=== PATIENT | male | born 1960 | race Caucasian/White ===

== ENCOUNTER → 2019-06-20 15:28 | Outpatient (CLI) | payer OTHER, SELFPAY ==
--- NOTE | 2019-06-20 12:15 | COLBX_PTH ---
PATIENT: PATRICK TORRES LOC: [facility] U#:[id number] AGE/SX: 64/M ROOM: RE06/20/[address]: Dr. Rey Yi MD : [id number] BED: DIS: SPEC #: [id number] RECD: 06/20/19 15:20 STATUS: ROM RECristina #: [id number] JANNETH: 06/20/19 12:[address]: Rey Yi DEPT: SURGICAL PATHOLOGY RECD BY: Raman Zuniga ENTERED: 06/21/19 14:13 SP TYPE: COLON BX OT DR: Dr. Liane Lennon, [facility] Tissues: Sigmoid colon biopsy Procedures: Surgery Specimen Level IV HEADER OPERATION: Colonoscopy with biopsy PRE-OP DIAGNOSIS: Screening/polyp TISSUE SUBMITTED: Sigmoid polyp biopsy, rule out adenoma MICROSCOPIC DIAGNOSIS Sigmoid polyp, biopsy: Fragments of hyperplastic polyp. SJ:terrence 06/22/19 MICROSCOPIC DESCRIPTION Slides are reviewed. GROSS DESCRIPTION Received is one container labeled with the patient name and designated sigmoid. The specimen consists of two irregular fragments of light hay soft tissue that in aggregate measure 0.5 x 0.3 x 0,1 cm. The specimen is totally submitted in one cassette. /SJ:sp 06/21/19 TC: 1 CPT: 41082
== END ==
PROVIDERS: Family Provider Internal Medicine; PCP Internal Medicine; Referring Provider Internal Medicine Gastroenterology; Visit Provider Internal Medicine Gastroenterology
DX: Z13.9 Encounter for screening, unspecified (principal); K63.5 Polyp of colon
CPT/HCPCS: 88305